=== PATIENT | female | born 1985 | race Caucasian/White ===

== ENCOUNTER 2017-08-25 18:24 | Inpatient (IN) | payer OTHER ==
[~2017-08-25] VITALS: Ht 149.9 cm; Wt 88.5 kg
[~2017-08-25 18:24] MED LIST: APIDRA100 U/ML SQ; LANTUS100 U/ML SQ; VASOTEC5 MG PO
== END 2017-08-29 18:29 | disposition home or self-care (01) | DRG 603 ==
LOC: ER 18:24 → SEC-K 08-26 10:07 → SURG 08-26 10:07 → MEDI 08-26 15:51 → SEC-K 08-26 16:20 → SURG 08-26 16:22 → MEDI 08-28 14:37
PROC: 0J993ZX Drainage of Buttock Subcutaneous Tissue and Fascia, Percutaneous Approach, Diagnostic (ICD-10-PCS; principal; 2017-08-27)
DX: L02.31 Cutaneous abscess of buttock (principal); E10.9 Type 1 diabetes mellitus without complications; L03.317 Cellulitis of buttock; I10 Essential (primary) hypertension; B95.2 Enterococcus as the cause of diseases classified elsewhere